=== PATIENT | male | born 1985 | race Caucasian/White ===

== ENCOUNTER → 2017-07-01 | Outpatient (CLI) | payer OTHER ==
[~2017-07-01] MED LIST: CLIN1CAP6 PO; NAPR500 PO
--- NOTE | 2017-07-01 15:08 | MG ---
cc: DINH MONAHAN M.D., VINCENTI C. M.D. Lab No: [id number] Date: 07/01/2017 : 1985 Age: 32 Sex: M Hyperventilation and photic. Hyperventilation listed as a good effort. EEG is awake. Last meal 5 o'clock last night. One cup of coffee at 7:20 this morning. Pain zero. States that the patient has staring spells and during these spells does not respond to the verbal stimulation. He was born one month early. Forceps. History of ADHD on Seroquel and Klonopin. DESCRIPTION OF RECORD The patient has an overall alpha rhythm of 10 to 10.5 Hz, 20-30 microvolts. Symmetrical background. Artifact over the EKG portion. Photic stimulation does elicit a posterior driving response. A lot of artifact with hyperventilation but no epileptic activity. IMPRESSION Normal-appearing EEG without any epileptiform features in this one recording. If epilepsy is still a consideration, prolonged EEG should be considered. MD PORFIRIO Amador/PILO /2:34 PM /2:45 PM
== END ==
LOC: HEEG 08:14
PROVIDERS: ATTEND Specialist
DX: F90.9 Attention-deficit hyperactivity disorder, unspecified type (principal)
CPT/HCPCS: 95819